=== PATIENT | male | born 1985 | race Caucasian/White ===

== ENCOUNTER 2020-06-29 10:14 | Inpatient (IN) | payer OTHER ==
[~2020-06-29] VITALS: Ht 167.6 cm; Wt 104.5 kg
[2020-06-29 13:36] VITALS: BP 111/52
[2020-06-29 17:23] VITALS: BP 115/60; Ht 167.6 cm; Wt 104.5 kg
== END 2020-06-29 17:27 | disposition home or self-care (01) | DRG 445 ==
LOC: D.MS 10:14 → D.SDCHOLD 10:40 → D.MS 10:50
PROVIDERS: ADMIT Family Medicine; ATTEND Family Medicine
DX: K81.0 Acute cholecystitis (principal); F17.203 Nicotine dependence unspecified, with withdrawal

== ENCOUNTER 2020-07-01 08:57 | Day surgery (SDC) | payer OTHER ==
[~2020-07-01] VITALS: Ht 167.6 cm; Wt 104.5 kg
[2020-07-01 09:30] LABS: BASOPHILS 0.5 % (0-2); EOSINOPHILS 3.9 % (0-7); HEMATOCRIT 48.6 % (42.0-54.0); HEMOGLOBIN 16.3 g/dL (13.5-17.5); IMMATURE GRANULOCYTES 0.2 % (0-5); LYMPHOCYTES 31.7 % (15-50); MCH 30.4 pg (26.0-34.0); MCHC 33.5 g/dL (31.0-37.0); MCV 90.7 fL (80.0-100.0); MEAN PLATELET VOLUME 10.3 fL (7.4-10.4); MONOCYTES 7.8 % (2-11); NEUTROPHILS 55.9 % (40-80); PLATELET COUNT 192 10x3/uL (130-400); RBC 5.36 10x6/uL (4.20-6.10); RDW 13.2 % (11.5-14.5); WBC 10.5 10x3/uL (4.8-10.8)
[2020-07-01 09:38] LABS: ANION GAP 8.6 mmol/L (8-16); CALCIUM 8.4 mg/dL (8.5-10.1); CARBON DIOXIDE 32.2 mmol/L (21.0-32.0); CREATININE - SERUM 1.2 mg/dL (0.6-1.3); POTASSIUM - SERUM 4.8 mmol/L (3.5-5.1)
[2020-07-01 11:28] VITALS: BP 117/80; Ht 167.6 cm; Wt 104.5 kg
--- NOTE | 2020-07-01 18:36 | NUR ---
1740 PT AMBULATED TO BR AND VOIDED WITHOUT DIFFICULTY. RATES PAIN 3/10 NOW. ABD SOFT AND SURGICAL SITES UNCHANGED. IV D/C'D WITH CANNULA INTACT, PRESSURE HELD AND DRS PLACED. DISCHARGE INSTRUCTIONS GIVEN TO PT AND . BOTH VERBALIZED AN UNDERSTANDING.
--- NOTE | 2020-07-18 17:14 | OP ---
PATIENT NAME: CLEO QUINONES MEDICAL RECORD: [id number] :83 LOCATION:[facility] ADMISSION DATE: SURGEON: DEYVI LO MD DATE OF OPERATION: 07/01/2020 PREOPERATIVE DIAGNOSIS: Symptomatic gallstones. POSTOPERATIVE DIAGNOSES: Symptomatic gallstones with hepatomegaly. PROCEDURES: 1. Laparoscopic cholecystectomy. 2. Intraoperative cholangiography without immediate surgeon interpretation. 3. A 14-gauge core liver needle biopsies. SURGEON: Deyvi Lo MD HOSE INSPECTOR AND PATCHER: None. BLOOD LOSS: Minimal. ANESTHESIA: General. The risks, possible complications and alternatives to the procedure were explained to the patient. He elects to proceed. The discussion specifically included, but was not limited to, bleeding requiring emergency reoperation, infection, bile duct injury. The indication for the liver biopsy was hepatomegaly. OPERATIVE COURSE: The patient was conveyed to the operating room electively on 07/01/2020. General anesthesia was induced by the anesthesia staff. The abdomen was sterilely prepped and draped. A small skin incision was accomplished in the left upper quadrant. A Veress needle was inserted through the skin anderi into the peritoneal cavity. CO2 insufflation was begun. Once a sufficient pneumoperitoneum had been achieved, a 5-mm trocar was inserted through an incision in the right upper quadrant. Under direct internal vision utilizing a television camera, a 12-mm trocar was inserted through an incision at the umbilicus. Another 5-mm trocar was inserted through an incision in the left upper quadrant and another 5-mm trocar was inserted through an incision in the right upper quadrant. During insertion of the Veress needle and all trocars, there appeared to have been no injury to the bowels, any intraperitoneal or retroperitoneal structures. Under laparoscopic guidance, I percutaneously accessed the right upper quadrant and obtained 14-gauge core liver biopsies. The biopsy sites were made hemostatic with electrocautery. I then advanced a cholangiogram trocar. I grasped the fundus of the gallbladder. I then punctured the fundus of the gallbladder with cholangiogram trocar. I aspirated bile. I then injected dye. A cholangiogram was performed and sent to the radiologist for interpretation. I aspirated bile and then removed the cholangiogram trocar. The gallbladder was grasped and retracted cephalad. The infundibulum was grasped and retracted laterally. Blunt dissection was begun in the triangle of OPERATIVE REPORT [id number] [place]ON[place]. One cystic artery and one cystic duct were identified. These were clipped multiply and divided between clips. The gallbladder was then excised from its bed in the liver. It was placed within a bag retrieval device and it was withdrawn through the umbilical fascia defect. A 12-mm trocar was replaced and the abdomen reinsufflated. I irrigated and aspirated the right upper quadrant. There was no bleeding even at low pressure of 8. The 12-mm trocar was removed. The fascia at the umbilicus was closed with the Stephan-Ariadne suture closure device and 0 Vicryl sutures. The other trocars were removed. The skin at the umbilicus was closed with interrupted 4-0 Vicryl Rapide sutures. The other skin incisions were closed with interrupted intracuticular 3-0 Vicryls. Benzoin and Steri-Strips were applied. The patient was then extubated and conveyed to the post-anesthesia care unit where he was in stable condition. He will be dismissed home on a narcotic analgesic. I will see him in the office in 2-3 weeks. TRANSINT:[id number] Voice Confirmation ID: [id number] DOCUMENT ID: [id number] DEYVI LO MD at 1714 CC: [id number] DICTATION DATE: 07/18/20 1531 CARPET TILE LAYER: 07/18/20 1629 [facility] 07/01/20 [facility] [address] [place] [address]
== END 2020-07-01 18:00 | disposition home or self-care (01) ==
LOC: D.OPS 08:57
PROVIDERS: ATTEND Surgery
DX: K80.80 Other cholelithiasis without obstruction (principal); R16.0 Hepatomegaly, not elsewhere classified